=== PATIENT | male | born 1940 | race Caucasian/White ===

== ENCOUNTER 2018-04-30 08:27 | Outpatient (CLI) | payer MEDICARE, BC ==
[~2018-04-30 08:27] MED LIST: ASPI81TA30 PO; DOCU100C40 PO; LISI-600 PO; PANT-47 PO
[2018-04-30 09:30] LABS: BASOPHILS % (AUTO) 0.3 % (0-1); EOSINOPHILS # (AUTO) 0.1 X10'3 (0-0.9); EOSINOPHILS % (AUTO) 2.6 % (0-6); HEMATOCRIT 41.9 % (42.0-52.0); HEMOGLOBIN 14.2 g/dl (14.0-17.9); LYMPHOCYTES # (AUTO) 1.4 X10'3 (1.1-4.8); LYMPHOCYTES % (AUTO) 30.9 % (21-51); MEAN CORPUSCULAR HEMOGLOBIN 32.4 PG (27.0-31.0); MEAN CORPUSCULAR HGB CONC 33.9 % (33.0-36.5); MEAN CORPUSCULAR VOLUME 95.5 FL (78-98); MEAN PLATELET VOLUME 8.5 FL (7.4-10.4); MONOCYTES # (AUTO) 0.4 X10'3 (0-0.9); MONOCYTES % (AUTO) 8.8 % (2-12); NEUTROPHILS # (AUTO) 2.6 X10'3 (1.8-7.7); NEUTROPHILS % (AUTO) 57.4 % (42-75); PLATELET COUNT 145 X10'3 (140-440); RED BLOOD COUNT 4.38 X10'6 (4.70-6.10); RED CELL DISTRIBUTION WIDTH 12.6 % (11.5-14.5); WHITE BLOOD COUNT 4.5 X10'3 (4.5-11.0)
[2018-04-30 09:35] LABS: CLARITY,URINE CLEAR (Clear); COLOR,URINE YELLOW (Yellow); GLUCOSE, URINE NEGATIVE (Neg); KETONES,URINE NEGATIVE (Neg); NITRITES, URINE NEGATIVE (Neg); OCCULT BLOOD,URINE TRACE-LYSED (Neg); PROTEIN,URINE NEGATIVE (Neg)
[2018-04-30 09:36] LABS: LEUKOCYTE ESTERASE ,URINE NEGATIVE (Neg); UROBILINOGEN,URINE 0.2 E.U/dL (0.2-1.0)
[2018-04-30 09:39] LABS: INR 0.9 INR; PROTHROMBIN TIME 9.8 SECONDS (9.0-12.0)
[2018-04-30 09:41] LABS: UA COLLECTION TYPE NON-SPECIFIED
[2018-04-30 09:46] LABS: BACTERIA,URINE FEW /HPF (Neg); RBC,URINE 0-2 /HPF (0-2); SQUAMOUS EPITHELIAL CELL,UR FEW /LPF (FEW); WBC,URINE 0-4 /HPF (0-4)
[2018-04-30 09:48] LABS: ALANINE AMINOTRANSFERASE 23 U/L (12-78); ALBUMIN 3.6 G/DL (3.4-5.0); ALBUMIN/GLOBULIN RATIO 1.2 (1.1-1.5); ALKALINE PHOSPHATASE 57 IU/L (46-116); ANION GAP 8 (8-16); ASPARTATE AMINO TRANSFERASE 18 U/L (10-37); BILIRUBIN,TOTAL 0.6 MG/DL (0.1-1.0); BLOOD UREA NITROGEN 16 MG/DL (7-18); BUN/CREATININE RATIO 16.7 (5.4-32.0); CALCIUM 8.4 MG/DL (8.5-10.1); CHLORIDE 106 MMOL/L (99-107); CREATININE 0.96 MG/DL (0.60-1.10); GLUCOSE 97 MG/DL (70-104); SODIUM 144 MMOL/L (135-145); TOTAL CARBON DIOXIDE 30.2 MMOL/L (24-32); TOTAL PROTEIN 6.7 G/DL (6.4-8.2); eGFR 76 ML/MIN
== END 2018-04-30 23:59 | disposition home or self-care (01) ==
LOC: EEVIPCON 08:27 → LAB 08:27
PROVIDERS: ATTEND Specialist
DX: Z01.818 Encounter for other preprocedural examination (principal); Z51.81 Encounter for therapeutic drug level monitoring; N39.0 Urinary tract infection, site not specified; J44.9 Chronic obstructive pulmonary disease, unspecified; K21.9 Gastro-esophageal reflux disease without esophagitis; I10 Essential (primary) hypertension; Z96.651 Presence of right artificial knee joint; Z79.82 Long term (current) use of aspirin
CPT/HCPCS: 36415; 80053; 81001; 85025; 85610; 87070

== ENCOUNTER 2018-05-07 07:30 | Inpatient (IN) | payer MEDICARE, BC ==
[~2018-05-07] VITALS: Ht 180.3 cm; Wt 96.8 kg
[~2018-05-07 07:30] MED LIST changes: -ASPI81TA30 PO
[2018-05-11] MEDS ORDERED: ZOLP10TA5 PO (11:23)
[2018-05-11] MEDS ORDERED: VITA150T PO (14:47)
[2018-05-11] MEDS ORDERED: MULT1TAB74 PO (14:47)
[2018-05-11] MEDS ORDERED: ASCO500C15 PO (14:47)
[2018-05-14] VITALS (18 sets, daily range): BP systolic 97–130; BP diastolic 53–80
[2018-05-14] MEDS ORDERED: ringers solution, lacted 1,000 ML IV SCH ×2 (05:00→08:07)
[2018-05-14] MEDS ORDERED: metoclopramide 5 mg/ml inj IV ONE (05:30)
[2018-05-14] MEDS ORDERED: acetaminophen 325mg tablet PO ONE (05:30)
[2018-05-14] MEDS ORDERED: famotidine 20mg tablet PO ONE (05:30)
[2018-05-14] MEDS ORDERED: cefazolin/dext.iso 2gm/100 ML IV ONE (05:30)
[2018-05-14] MEDS ORDERED: oxyCODONE SR 10mg (sust. release) tab PO ONE (05:30)
[2018-05-14] MEDS ORDERED: celeCOXIB 100mg capsule PO ONE (05:30)
[2018-05-14] MEDS ORDERED: gabapentin 300mg capsule PO ONE (05:30)
[2018-05-14] MEDS ORDERED: tranexamic acid inj. 1,500 MG in normal saline 100ml IV soln 100 ML IV ONE (05:30)
[2018-05-14] MEDS ORDERED: LIDOcaine 1% (10mg/ml) 2ml vial ONE (05:51)
[2018-05-14] MEDS ORDERED: bacitracin inj 150,000 UNIT in sodium chloride irrig. sol 3,000 ML IR ONE (07:00)
[2018-05-14] MEDS ORDERED: sevoflurane 250ml liquid IH ONE (07:12)
[2018-05-14] MEDS ORDERED: dexamethasone sod phosphate 10mg/ml inj ONE (07:12)
[2018-05-14] MEDS ORDERED: tetracaine 1% (10mg/ml) pres. free inj. ONE (07:18)
[2018-05-14] MEDS ORDERED: ROPIVAcaine 0.5% (5mg/ml) 30ml vial ONE ×2 (07:18→07:26)
[2018-05-14] MEDS ORDERED: BUPIVAcaine/dex-water/PF 7.5 mg/ml 2ml ampul ONE ×2 (07:18→09:09)
[2018-05-14] MEDS ORDERED: cloNIDine hcl/PF 100mcg/ml inj ONE (07:18)
[2018-05-14] MEDS ORDERED: MIDAZolam 1mg/ml 10ml vial ONE (07:20)
[2018-05-14] MEDS ORDERED: fentaNYL/PF 50MCG/1 ML 2ML syringe ONE (07:20)
[2018-05-14] MEDS ORDERED: morphine /PF 1mg/ml 10ml inj. ONE (07:20)
[2018-05-14] MEDS ORDERED: LIDOcaine 2% (20mg/ml) 5ml vial ONE (07:41)
[2018-05-14] MEDS ORDERED: ondansetron/PF 4mg/2ml inj ONE (07:41)
[2018-05-14] MEDS ORDERED: propofol inj 20 ML IV ONE ×2 (07:41)
[2018-05-14] MEDS ORDERED: morphine 4 MG/ML inj SYRINge IV PRN ×2 (08:10)
[2018-05-14] MEDS ORDERED: hydrALAZINE 20mg/ml inj. IV PRN (08:10)
[2018-05-14] MEDS ORDERED: labetalol 20mg/4ml (5mg/ml) syringe IV PRN (08:10)
[2018-05-14] MEDS ORDERED: fentaNYL/PF 50MCG/1 ML 2ML syringe IV PRN ×2 (08:10)
[2018-05-14] MEDS ORDERED: ondansetron/PF 4mg/2ml inj IV PRN ×3 (08:10→09:50)
[2018-05-14] MEDS ORDERED: ceFAZolin 1000mg inj ONE (08:22)
[2018-05-14] MEDS ORDERED: diphenhydrAMINE 50 mg/ml inj IV PRN (08:30)
[2018-05-14] MEDS ORDERED: bisacodyl 10mg suppository rectal RC PRN (09:50)
[2018-05-14] MEDS ORDERED: HYDROmorphone 1 mg/ml syringe IV PRN (09:50)
[2018-05-14] MEDS ORDERED: magnesium hydroxide 30ml (MOM) UD suspension PO PRN (09:50)
[2018-05-14] MEDS ORDERED: diphenhydrAMINE 25mg capsule PO PRN (09:50)
[2018-05-14] MEDS ORDERED: acetaminophen 325mg tablet PO PRN (09:50)
[2018-05-14] MEDS ORDERED: morphine 2 MG/ML inj. syringe IV PRN (10:27)
[2018-05-14] MEDS: potassium cl 20mEq in 1/2 NS 1,000 ML IV SCH ×2 (11:32→21:11)
[2018-05-14] MEDS: gabapentin 300mg capsule PO SCH ×2 (13:35→21:10)
[2018-05-14] MEDS: ceFAZolin 1GM/D5W- ADD-VANTAGE 50 ML IV SCH ×2 (15:58→23:50)
[2018-05-14] MEDS: docusate sod 100mg capsule PO SCH (21:10)
[2018-05-14] MEDS: ascorbic acid 500mg tablet PO SCH (21:10)
[2018-05-14] MEDS: sennosides 8.6mg tablet PO SCH (21:11)
[2018-05-14] MEDS: oxyCODONE/APAP 10/325mg tablet PO PRN (21:11)
[2018-05-14] MEDS: diphenhydrAMINE 25mg capsule PO PRN (22:23)
[2018-05-15] MEDS: potassium cl 20mEq in 1/2 NS 1,000 ML IV SCH ×2 (01:50→09:50)
[2018-05-15 02:00] VITALS: BP 133/83
[2018-05-15] MEDS: oxyCODONE/APAP 10/325mg tablet PO PRN ×4 (04:26→20:22)
[2018-05-15 05:00] VITALS: BP 122/73
[2018-05-15 05:44] LABS: BASOPHILS % (AUTO) 0.2 % (0-1); EOSINOPHILS # (AUTO) 0.1 X10'3 (0-0.9); HEMATOCRIT 34.5 % (42.0-52.0); HEMOGLOBIN 11.8 g/dl (14.0-17.9); LYMPHOCYTES # (AUTO) 1.2 X10'3 (1.1-4.8); LYMPHOCYTES % (AUTO) 10.3 % (21-51); MEAN CORPUSCULAR HEMOGLOBIN 32.6 PG (27.0-31.0); MEAN CORPUSCULAR HGB CONC 34.2 % (33.0-36.5); MEAN CORPUSCULAR VOLUME 95.4 FL (78-98); MEAN PLATELET VOLUME 8.1 FL (7.4-10.4); MONOCYTES # (AUTO) 1.2 X10'3 (0-0.9); MONOCYTES % (AUTO) 10.4 % (2-12); NEUTROPHILS # (AUTO) 9.3 X10'3 (1.8-7.7); NEUTROPHILS % (AUTO) 78.1 % (42-75); PLATELET COUNT 150 X10'3 (140-440); RED BLOOD COUNT 3.62 X10'6 (4.70-6.10); RED CELL DISTRIBUTION WIDTH 12.6 % (11.5-14.5); WHITE BLOOD COUNT 11.9 X10'3 (4.5-11.0)
[2018-05-15 05:53] LABS: INR 1.1 INR; PROTHROMBIN TIME 11.1 SECONDS (9.0-12.0)
[2018-05-15 06:03] LABS: ANION GAP 6 (8-16); CHLORIDE 107 MMOL/L (99-107); POTASSIUM 4.4 MMOL/L (3.5-5.1); SODIUM 142 MMOL/L (135-145); TOTAL CARBON DIOXIDE 28.7 MMOL/L (24-32)
[2018-05-15] MEDS: pantoprazole 40mg Tablet.DR PO SCH (08:01)
[2018-05-15] MEDS: multivitamins, therapeutics tablet PO SCH (08:01)
[2018-05-15] MEDS: docusate sod 100mg capsule PO SCH ×2 (08:01→20:21)
[2018-05-15] MEDS: ascorbic acid 500mg tablet PO SCH ×2 (08:01→20:22)
[2018-05-15] MEDS: gabapentin 300mg capsule PO SCH ×3 (08:01→20:21)
[2018-05-15] MEDS: lisinopril 20mg tablet PO SCH (08:01)
[2018-05-15 10:00] VITALS: BP 124/65
[2018-05-15] MEDS ORDERED: warfarin 10mg tablet PO ONE (10:00)
[2018-05-15 14:00] VITALS: BP 122/71
[2018-05-15] MEDS: celeCOXIB 100mg capsule PO SCH (20:21)
[2018-05-15] MEDS: sennosides 8.6mg tablet PO SCH (20:21)
[2018-05-15] MEDS: diphenhydrAMINE 25mg capsule PO PRN (20:22)
[2018-05-15 22:00] VITALS: BP 144/82
[2018-05-16] MEDS: oxyCODONE/APAP 10/325mg tablet PO PRN ×4 (01:42→21:02)
[2018-05-16 05:46] LABS: BASOPHILS % (AUTO) 0.3 % (0-1); EOSINOPHILS # (AUTO) 0.2 X10'3 (0-0.9); EOSINOPHILS % (AUTO) 1.7 % (0-6); HEMATOCRIT 36.2 % (42.0-52.0); HEMOGLOBIN 12.4 g/dl (14.0-17.9); LYMPHOCYTES # (AUTO) 1.9 X10'3 (1.1-4.8); LYMPHOCYTES % (AUTO) 21.3 % (21-51); MEAN CORPUSCULAR HEMOGLOBIN 32.7 PG (27.0-31.0); MEAN CORPUSCULAR HGB CONC 34.3 % (33.0-36.5); MEAN CORPUSCULAR VOLUME 95.2 FL (78-98); MEAN PLATELET VOLUME 8.6 FL (7.4-10.4); MONOCYTES # (AUTO) 0.9 X10'3 (0-0.9); MONOCYTES % (AUTO) 10.2 % (2-12); NEUTROPHILS # (AUTO) 6.1 X10'3 (1.8-7.7); NEUTROPHILS % (AUTO) 66.5 % (42-75); PLATELET COUNT 148 X10'3 (140-440); RED BLOOD COUNT 3.81 X10'6 (4.70-6.10); RED CELL DISTRIBUTION WIDTH 12.6 % (11.5-14.5); WHITE BLOOD COUNT 9.1 X10'3 (4.5-11.0)
[2018-05-16 06:00] VITALS: BP 142/93
[2018-05-16 06:08] LABS: PROTHROMBIN TIME 10.8 SECONDS (9.0-12.0)
[2018-05-16] MEDS: multivitamins, therapeutics tablet PO SCH (07:46)
[2018-05-16] MEDS: pantoprazole 40mg Tablet.DR PO SCH (07:46)
[2018-05-16] MEDS: lisinopril 20mg tablet PO SCH (07:46)
[2018-05-16] MEDS: ascorbic acid 500mg tablet PO SCH ×3 (07:46→21:02)
[2018-05-16] MEDS: docusate sod 100mg capsule PO SCH ×3 (07:46→21:02)
[2018-05-16] MEDS: celeCOXIB 100mg capsule PO SCH ×3 (07:46→21:03)
[2018-05-16] MEDS: gabapentin 300mg capsule PO SCH ×4 (07:47→21:02)
[2018-05-16] MEDS: lactose-reduced food (Ensure Enlive) - 237ml bottle PO SCH ×4 (08:00→18:00)
[2018-05-16] MEDS: potassium cl 20mEq in 1/2 NS 1,000 ML IV SCH (08:19)
[2018-05-16] MEDS ORDERED: ASPI-1 PO (09:48)
[2018-05-16] MEDS ORDERED: acetaminophen 325mg tablet PO PRN (09:50)
[2018-05-16 10:00] VITALS: BP 101/43
[2018-05-16] MEDS ORDERED: warfarin 10mg tablet PO ONE (10:00)
[2018-05-16 18:00] VITALS: BP 137/78
[2018-05-16] MEDS: sennosides 8.6mg tablet PO SCH ×2 (20:58→21:02)
[2018-05-16 22:00] VITALS: BP 134/82
[2018-05-17] MEDS: oxyCODONE/APAP 10/325mg tablet PO PRN (05:09)
[2018-05-17 05:48] LABS: BASOPHILS % (AUTO) 0.3 % (0-1); EOSINOPHILS # (AUTO) 0.2 X10'3 (0-0.9); EOSINOPHILS % (AUTO) 2.5 % (0-6); HEMATOCRIT 35.3 % (42.0-52.0); HEMOGLOBIN 12.1 g/dl (14.0-17.9); LYMPHOCYTES # (AUTO) 1.6 X10'3 (1.1-4.8); LYMPHOCYTES % (AUTO) 19.3 % (21-51); MEAN CORPUSCULAR HEMOGLOBIN 32.7 PG (27.0-31.0); MEAN CORPUSCULAR HGB CONC 34.3 % (33.0-36.5); MEAN CORPUSCULAR VOLUME 95.5 FL (78-98); MEAN PLATELET VOLUME 8.8 FL (7.4-10.4); MONOCYTES # (AUTO) 0.8 X10'3 (0-0.9); MONOCYTES % (AUTO) 9.1 % (2-12); NEUTROPHILS # (AUTO) 5.8 X10'3 (1.8-7.7); NEUTROPHILS % (AUTO) 68.8 % (42-75); PLATELET COUNT 147 X10'3 (140-440); RED CELL DISTRIBUTION WIDTH 12.6 % (11.5-14.5); WHITE BLOOD COUNT 8.5 X10'3 (4.5-11.0)
[2018-05-17 06:00] VITALS: BP 107/74
[2018-05-17 06:13] LABS: PROTHROMBIN TIME 11.9 SECONDS (9.0-12.0)
[2018-05-17 06:14] LABS: INR 1.2 INR
[2018-05-17] MEDS: lisinopril 20mg tablet PO SCH (08:00)
[2018-05-17] MEDS: lactose-reduced food (Ensure Enlive) - 237ml bottle PO SCH (08:00)
[2018-05-17] MEDS: multivitamins, therapeutics tablet PO SCH (08:55)
[2018-05-17] MEDS: pantoprazole 40mg Tablet.DR PO SCH (08:56)
[2018-05-17] MEDS ORDERED: gabapentin 300mg capsule PO ONE (09:00)
[2018-05-17] MEDS ORDERED: ascorbic acid 500mg tablet PO ONE (09:00)
[2018-05-17] MEDS ORDERED: celeCOXIB 100mg capsule PO ONE (09:00)
[2018-05-17] MEDS ORDERED: docusate sod 100mg capsule PO ONE (09:00)
[2018-05-17] MEDS ORDERED: warfarin 10mg tablet PO ONE (10:00)
== END 2018-05-17 10:00 | disposition home health service (06) | DRG 470 ==
LOC: PAS IN 05-14 05:32 → EDSTATUS 05-14 07:30 → ORTHO 4S 05-14 11:05
PROVIDERS: ADMIT Specialist; ATTEND Specialist
PROC: 3E0T3BZ Introduction of Anesthetic Agent into Peripheral Nerves and Plexi, Percutaneous Approach (ICD-10-PCS; 2018-05-14)
PROC: 0LNR0ZZ Release Left Knee Tendon, Open Approach (ICD-10-PCS; 2018-05-14)
PROC: 0SRD0J9 Replacement of Left Knee Joint with Synthetic Substitute, Cemented, Open Approach (ICD-10-PCS; principal; 2018-05-14 07:17)
DX: M17.12 Unilateral primary osteoarthritis, left knee (principal); D62 Acute posthemorrhagic anemia; G47.30 Sleep apnea, unspecified; I10 Essential (primary) hypertension; I25.10 Atherosclerotic heart disease of native coronary artery without angina pectoris; K21.9 Gastro-esophageal reflux disease without esophagitis; Z96.651 Presence of right artificial knee joint; Z95.2 Presence of prosthetic heart valve; Z79.899 Other long term (current) drug therapy; Z95.1 Presence of aortocoronary bypass graft
CPT/HCPCS: 36415; 73560; 80051; 85025; 85610; 93005; 94760; 97110; 97116; 97161; 97530; A6449; A6455; A7000; C1713; C1758; C1776; J0690; J0735; J1100; J1170; J1200; J2001; J2250; J2274; J2405; J2704; J2765; J2795; J3010; J3490; J7030; J7120; Q0163

== ENCOUNTER 2018-10-05 13:55 | Emergency (ER) | payer MEDICARE, BC ==
[~2018-10-05] VITALS: Ht 180.3 cm; Wt 80.0 kg
[~2018-10-05 13:55] MED LIST changes: +ASCO500C15 PO; +MULT1TAB74 PO; +VITA150T PO; +ZOLP10TA5 PO
[2018-10-05 14:39] LABS: BASOPHILS % (AUTO) 0.2 % (0-1); EOSINOPHILS % (AUTO) 0.6 % (0-6); HEMATOCRIT 42.4 % (42.0-52.0); HEMOGLOBIN 14.5 g/dl (14.0-17.9); LYMPHOCYTES # (AUTO) 1.2 X10'3 (1.1-4.8); LYMPHOCYTES % (AUTO) 19.7 % (21-51); MEAN CORPUSCULAR HEMOGLOBIN 31.5 PG (27.0-31.0); MEAN CORPUSCULAR HGB CONC 34.2 g/dL (33.0-36.5); MEAN PLATELET VOLUME 8.2 FL (7.4-10.4); MONOCYTES # (AUTO) 0.5 X10'3 (0-0.9); MONOCYTES % (AUTO) 7.6 % (2-12); NEUTROPHILS # (AUTO) 4.4 X10'3 (1.8-7.7); NEUTROPHILS % (AUTO) 71.9 % (42-75); PLATELET COUNT 167 X10'3 (140-440); RED BLOOD COUNT 4.61 X10'6 (4.70-6.10); WHITE BLOOD COUNT 6.1 X10'3 (4.5-11.0)
[2018-10-05] MEDS ORDERED: normal saline 1000ML IV soln IVB ONE (14:55)
[2018-10-05 14:57] LABS: PARTIAL THROMBOPLASTIN TIME 27 SECONDS (22-32)
[2018-10-05 15:03] LABS: ALANINE AMINOTRANSFERASE 20 U/L (12-78); ALBUMIN 3.8 G/DL (3.4-5.0); ALBUMIN/GLOBULIN RATIO 1.2 (1.1-1.5); ALKALINE PHOSPHATASE 58 IU/L (46-116); ANION GAP 4 (8-16); ASPARTATE AMINO TRANSFERASE 15 U/L (10-37); BILIRUBIN,TOTAL 0.6 MG/DL (0.1-1.0); BLOOD UREA NITROGEN 14 MG/DL (7-18); BUN/CREATININE RATIO 14.3 (5.4-32.0); CALCIUM 9.1 MG/DL (8.5-10.1); CHLORIDE 105 MMOL/L (99-107); CREATININE 0.98 MG/DL (0.60-1.10); GLUCOSE 129 MG/DL (70-104); SODIUM 140 MMOL/L (135-145); eGFR 74 ML/MIN
[2018-10-05 15:41] LABS: CLARITY,URINE CLEAR (Clear); COLOR,URINE YELLOW (Yellow); GLUCOSE, URINE NEGATIVE (Neg); KETONES,URINE NEGATIVE (Neg); LEUKOCYTE ESTERASE ,URINE NEGATIVE (Neg); NITRITES, URINE NEGATIVE (Neg); OCCULT BLOOD,URINE TRACE-INTACT (Neg); PH,URINE 5.5 (4.8-8.0); PROTEIN,URINE NEGATIVE (Neg); UA COLLECTION TYPE CLN CATCH MIDSTREAM; UROBILINOGEN,URINE 0.2 E.U/dL (0.2-1.0)
[2018-10-05 15:47] LABS: BACTERIA,URINE NONE SEEN /HPF (Neg); MUCUS STRANDS NONE SEEN /LPF (Neg); RBC,URINE 0-2 /HPF (0-2); SQUAMOUS EPITHELIAL CELL,UR NONE SEEN /LPF (FEW); WBC,URINE NONE SEEN /HPF (0-4)
[2018-10-05 16:31] VITALS: BP 139/81
== END 2018-10-05 16:39 | disposition home or self-care (01) ==
LOC: ER 13:55
DX: R55 Syncope and collapse (principal); I25.10 Atherosclerotic heart disease of native coronary artery without angina pectoris; I10 Essential (primary) hypertension; K21.9 Gastro-esophageal reflux disease without esophagitis; Z90.49 Acquired absence of other specified parts of digestive tract; Z95.1 Presence of aortocoronary bypass graft; Z98.890 Other specified postprocedural states; Z88.5 Allergy status to narcotic agent; Z79.899 Other long term (current) drug therapy
CPT/HCPCS: 36415; 71045; 80053; 81001; 83880; 84145; 84484; 85025; 85610; 85730; 93005; 99284; J7030